=== PATIENT | female | born 2000 | race Caucasian/White ===

== ENCOUNTER 2020-03-17 10:22 | Emergency (ER) | payer BC, OTHER ==
[~2020-03-17 10:22] MED LIST: Iopamidol-370 76% 500 ML 1 ML ONE
[2020-03-17 11:11] LABS: Hemoglobin 14.5 g/dL (12.0-16.0); Mean Corpuscular HGB CONC 33.6 g/dL (32.0-36.0); Mean Corpuscular Hemoglobin 30.5 pg (25.0-35.0); Mean Corpuscular Volume 90.8 fL (78.0-98.0); Mean Platelet Volume 8.1 fL (7.4-10.4); Platelet Count 234 thou/uL (130-400); RBC Distribution Width 11.2 % (11.5-14.5); Red Blood Cell (RBC) Count 4.74 mill/uL (4.00-5.20); White Blood Cell (WBC) Count 8.6 thou/uL (4.8-10.8)
[2020-03-17 11:21] LABS: ALT (SGPT) 307 U/L (8-55); AST (SGOT) 130 U/L (5-34); Albumin 4.2 g/dL (3.5-5.0); Alkaline Phosphatase 127 U/L (40-100); Anion Gap 13 mmol/L (10-20); BUN (Urea Nitrogen) 12 mg/dL (7.0-18.7); Bilirubin, Total 0.9 mg/dL (0.2-1.2); Calc. Creatinine Clearance 0 mL/min (70-130); Calcium 9.2 mg/dL (7.8-10.44); Carbon Dioxide 23 mmol/L (22-29); Chloride 107 mmol/L (98-107); Estimated GFR-MDRD Greater than 90; Globulin 3.8 g/dL (2.4-3.5); Glucose 136 mg/dL (70-105); Potassium 4.3 mmol/L (3.5-5.1); Sodium 139 mmol/L (136-145)
--- NOTE | 2020-03-17 11:21 | CT ---
EXAM: CT NECK SOFT TISSUE POST CONTRAST: HISTORY:Cough. Sore throat. Hemoptysis. COMPARISON:None CORRELATION:None FINDINGS: Brain parenchyma: No pathologic enhancement of the visualized brain parenchyma. Sinuses: Adequate aeration of the visualized paranasal sinuses and mastoid air cells. Orbits: Appropriate location of the ocular lenses. Symmetric attenuation the optic nerves and ocular rectus muscles. Retrobulbar fat is preserved. Nasopharynx:There is fullness of the nasopharynx at the level of the adenoid tonsils suggesting adeno id tonsil hypertrophy. Oral cavity:There is prominence of the left and right palatine tonsils. No evidence of a peritonsilla r abscess. Midline fatty raphae of the tongue is preserved. No obvious masses within the oral cavity. Hypopharynx: No mucosal abnormality. Epiglottis has a normal caliber. Preepiglottic fat is preserved .. Larynx: No mucosal abnormality with regards to the supraglottic, glottic and subglottic larynx. Paraspinal muscles: Symmetric attenuation of the paraspinal muscles and symmetric attenuation of the sternocleidomastoid muscles.. Parotid and salivary glands: Symmetric attenuation of the parotid and submandibular glands Vessels: No significant stenosis. Technique limits evaluation. Thyroid gland: Unremarkable. Spine: Vertebral body height is maintained. No fracture. No significant central canal stenosis or sig nificant neural foraminal narrowing. Limited evaluation due to technique. Lymph nodes: Right neck: Enlarged right level 1 lymph node measures 0.6 x 1.3 cm, enlarged right level 2 lymph nod e measures 1.8 x 1.3 cm, enlarged right level 5 lymph node measures 1.2 x 0.8 cm Left neck: Enlarged left level 2 lymph node measures 1.1 x 1.7 cm. Lung apices and upper mediastinum: No acute abnormality. IMPRESSION: Extensive lymphadenopathy involving the soft tissue neck structures. Lymphadenopathy is presumed to b e reactive from a infectious or inflammatory process. Clinical correlation is essential. If lymphadenopathy persists, consider a primary or metastatic malignancy.
[2020-03-17 11:42] LABS: Band 22 % (5-11); Lymphocytes 27 % (28-48); MDiff Complete? YES; Monocytes 2 % (0-4); Neutrophil 44 % (31-61); RBC Morphology Normal; Reactive Lymphocytes 5 % (0-10)
[2020-03-17] MEDS ORDERED: Ampicillin/Sulbactam 3 GM in Sodium Chloride 0.9% 100 ML IVPB SCH (11:45)
== END 2020-03-17 13:24 | disposition home or self-care (01) ==
LOC: ERS 10:22
DX: R04.2 Hemoptysis (principal); R59.0 Localized enlarged lymph nodes
CPT/HCPCS: 70491; 80053; 85025; 87081; 87430; 96365; J0295; J3490; Q9967

== ENCOUNTER 2020-03-17 14:30 | Outpatient (CLI) | payer BC | END 2020-03-17 14:31 | disposition home or self-care (01) | LOC: CTENTCT 14:30 | PROVIDERS: ATTEND Otolaryngology Plastic Surgery within the Head & Neck | DX: J01.90 Acute sinusitis, unspecified (principal) | CPT/HCPCS: 70486 ==

== ENCOUNTER 2020-03-19 05:14 | Emergency (ER) | payer BC ==
[2020-03-19] MEDS ORDERED: cefTRIAXone\\ROCEPHIN 1 GM VIAL ONE (05:50)
[2020-03-19] MEDS ORDERED: Dexamethasone 10 MG/ML VIAL ONE (05:53)
[2020-03-19 06:17] LABS: Hemoglobin 13.1 g/dL (12.0-16.0); Mean Corpuscular Hemoglobin 30.9 pg (25.0-35.0); Mean Corpuscular Volume 90.9 fL (78.0-98.0); Mean Platelet Volume 7.9 fL (7.4-10.4); Platelet Count 212 thou/uL (130-400); RBC Distribution Width 11.4 % (11.5-14.5); Red Blood Cell (RBC) Count 4.24 mill/uL (4.00-5.20); White Blood Cell (WBC) Count 8.6 thou/uL (4.8-10.8)
[2020-03-19 06:26] LABS: MONO NEGATIVE CONTROL ZONE White (Negative) (White); MONO POSITIVE CONTROL Pink Line (Positive) (PINK/RED); Mononucleosis POSITIVE (NEGATIVE)
[2020-03-19 06:32] LABS: Anion Gap 13 mmol/L (10-20); BUN (Urea Nitrogen) 20 mg/dL (7.0-18.7); Calc. Creatinine Clearance 0 mL/min (70-130); Carbon Dioxide 23 mmol/L (22-29); Chloride 106 mmol/L (98-107); Estimated GFR-MDRD Greater than 90; Glucose 105 mg/dL (70-105); Potassium 3.7 mmol/L (3.5-5.1); Sodium 138 mmol/L (136-145)
[2020-03-19 06:43] LABS: Band 3 % (5-11); Lymphocytes 33 % (28-48); MDiff Complete? YES; Monocytes 9 % (0-4); Neutrophil 43 % (31-61); Reactive Lymphocytes 12 % (0-10)
== END 2020-03-19 07:05 | disposition home or self-care (01) ==
LOC: ERS 05:14
DX: B27.90 Infectious mononucleosis, unspecified without complication (principal)
CPT/HCPCS: 80048; 83605; 85025; 86308; 96365; 96375; J0696; J1100

== ENCOUNTER 2022-04-07 09:27 | Emergency (ER) | payer BC, OTHER | END 2022-04-07 10:46 | disposition left against medical advice (07) | LOC: ERS 09:27 | DX: Z53.21 Procedure and treatment not carried out due to patient leaving prior to being seen by health care provider (principal) ==